=== PATIENT | female | born 1965 | race Caucasian/White ===

== ENCOUNTER 2020-08-31 04:59 | Emergency (ER) | payer BC, OTHER ==
[2020-08-31 06:36] LABS: RED BLOOD COUNT 4.43 M/UL (4.00-5.10)
[2020-08-31 07:19] LABS: BUN/CREATININE RATIO 11 (0-10)
[2020-08-31] MEDS ORDERED: ZOFRAN ODT 4 MG4 MG PO (08:02)
== END 2020-08-31 08:25 | disposition home or self-care (01) ==
LOC: ER1 04:59
PROVIDERS: Internal Medicine
DX: K52.9 Noninfective gastroenteritis and colitis, unspecified (principal); Z90.49 Acquired absence of other specified parts of digestive tract; Z88.1 Allergy status to other antibiotic agents
CPT/HCPCS: 80053; 81001; 85025; 87086; 96374; 96375; 99284; J1885; J2270; J2405; J7120

== ENCOUNTER → 2021-01-22 | Outpatient (CLI) | payer OTHER ==
[~2021-01-22] MED LIST: ZOFRAN ODT 4 MG4 MG PO
== END ==
LOC: EROP 20:05
DX: Z20.822 Contact with and (suspected) exposure to COVID-19 (principal)
CPT/HCPCS: U0002